=== PATIENT | female | born 1990 | race Caucasian/White ===

== ENCOUNTER 2019-05-14 00:04 | Emergency (ER) | payer SELFPAY ==
[~2019-05-14] VITALS: Ht 157.5 cm; Wt 72.8 kg
[2019-05-14 00:09] VITALS: Ht 157.5 cm; Wt 72.8 kg
[2019-05-14] MEDS ORDERED: BIRTH CONTROL (00:11)
[2019-05-14 00:52] LABS: CALC OSMOLALITY 277 mosm/kg (275-300); CALCIUM 8.5 mg/dL (8.5-10.1); CARBON DIOXIDE 25.9 mmol/L (21.0-32.0); CHLORIDE - SERUM 102 mmol/L (98-107); CREATININE - SERUM 0.7 mg/dL (0.6-1.3); GLUCOSE 90 mg/dL (74-106); POTASSIUM - SERUM 3.2 mmol/L (3.5-5.1); SODIUM 139 mmol/L (136-145); UREA NITROGEN 12 mg/dL (7-18); eGFR NON AFRICAN AMERICAN > 90 mL/min (90-120)
[2019-05-14 00:56] LABS: HCG URINE NEGATIVE (NEGATIVE)
[2019-05-14 00:56] LABS: BASOPHILS 0.1 % (0-2); EOSINOPHILS 0.5 % (0-7); HEMATOCRIT 34.3 % (36.0-48.0); HEMOGLOBIN 11.7 g/dL (12-16); IMMATURE GRANULOCYTES 0.3 % (0-5); MCH 28.3 pg (26.0-34.0); MCHC 34.1 g/dL (31.0-37.0); MCV 82.9 fL (80.0-100.0); MEAN PLATELET VOLUME 10.1 fL (7.4-10.4); MONOCYTES 5.6 % (2-11); NEUTROPHILS 63.5 % (40-80); PLATELET COUNT 287 10x3/uL (130-400); RBC 4.14 10x6/uL (4.00-5.40); RDW 12.8 % (11.5-14.5); WBC 11.7 10x3/uL (4.8-10.8)
[2019-05-14 00:57] LABS: APPEARANCE CLEAR (CLEAR); BILIRUBIN NEGATIVE (NEGATIVE); COLOR YELLOW (YELLOW); GLUCOSE NEGATIVE (NEGATIVE); KETONE NEGATIVE (NEGATIVE); NITRITE NEGATIVE (NEGATIVE); PROTEIN NEGATIVE (NEGATIVE); UROBILINOGEN NORMAL (NORMAL)
[2019-05-14 00:57] LABS: ALBUMIN 3.2 g/dL (3.4-5.0); ALKALINE PHOSPHATASE 69 U/L (46-116); ALT (SGPT) 15 U/L (10-68); BILIRUBIN - TOTAL 0.85 mg/dL (0.2-1.3); LIPASE 192 U/L (73-393); TROPONIN-I < 0.017 ng/mL (0.000-0.060)
[2019-05-14 01:00] LABS: BACTERIA MODERATE /hpf (NEGATIVE); EPITHELIAL CELLS 0-5 /hpf (0-5); RED CELLS - URINE 0-5 /hpf (0-5)
[2019-05-14 03:19] LABS: MAGNESIUM - SERUM 1.7 mg/dL (1.8-2.4); THYROID STIMULATING HORMONE 3.51 uIU/mL (0.36-3.74)
[2019-05-14] MEDS ORDERED: PROTONIX40 MG PO (03:21)
[2019-05-14 04:41] VITALS: BP 105/71
== END 2019-05-14 04:43 | disposition home or self-care (01) ==
LOC: D.ER 00:04
PROVIDERS: Emergency Medicine
DX: R10.9 Unspecified abdominal pain (principal); D64.9 Anemia, unspecified; E87.6 Hypokalemia